=== PATIENT | male | born 1945 | race Caucasian/White ===

== ENCOUNTER → 2018-06-24 | Outpatient (CLI) | payer BC, MEDICARE ==
[~2018-06-24] MED LIST: ASPI81CH; ATEN25; ERGO400 PO; HYDACE5 PO; LORA.5 PO; METF500 PO; ROSU5 PO
== END | disposition home or self-care (01) ==
LOC: LAB SHORT 14:25 → LAB EV 14:25
DX: N39.0 Urinary tract infection, site not specified (principal)
CPT/HCPCS: 87086

== ENCOUNTER 2018-10-14 08:50 | Emergency (ER) | payer BC, MEDICARE ==
[~2018-10-14] VITALS: Ht 172.7 cm; Wt 88.5 kg
[2018-10-14 09:31] LABS: BASOPHILS ABSOLUTE AUTO 0.05 K/mm3 (0.00-0.23); BASOPHILS PERCENT AUTO 1 % (0-2); EOSINOPHILS ABSOLUTE AUTO 0.11 K/mm3 (0.00-0.68); EOSINOPHILS PERCENT AUTO 1 % (0-6); Hematocrit 46.1 % (37.0-53.0); Hemoglobin 15.5 g/dL (13.5-17.5); IMMATURE GRAN ABSOLUTE AUTO 0.03 K/mm3 (0.00-0.10); IMMATURE GRAN PERCENT AUTO 0 % (0-1); LYMPHOCYTES ABSOLUTE AUTO 2.25 K/mm3 (0.84-5.20); LYMPHOCYTES PERCENT AUTO 27 % (21-46); MONOCYTES ABSOLUTE AUTO 0.54 K/mm3 (0.16-1.47); MONOCYTES PERCENT AUTO 6 % (4-13); Mean Corpuscular HGB 31.2 pg (26.0-34.0); Mean Corpuscular HGB Conc 33.6 g/dL (31.5-36.5); Mean Corpuscular Volume 93 fL (80-100); NEUTROPHILS PERCENT AUTO 65 % (41-73); Platelet Count 232 K/mm3 (150-400); RDW Coefficient Variation 13.1 % (11.7-14.2); RDW Standard Deviation 44.3 fL (35.1-46.3); Red Blood Cell Count 4.97 M/mm3 (4.30-5.90); White Blood Cell Count 8.38 K/mm3 (4.00-11.30)
[2018-10-14 10:19] LABS: Alanine Aminotransfer (ALT/SGP 35 U/L (12-78); Albumin, Blood 3.9 g/dL (3.4-5.0); Albumin/Globulin Ratio 1.1 (0.8-1.8); Alk Phos 54 U/L (50-136); Anion Gap 8 mmol/L (6-16); Aspartate Aminotrans (AST/SGOT 23 U/L (12-37); Bilirubin, Total 1.2 mg/dL (0.1-1.0); Blood Urea Nitrogen 20 mg/dL (8-24); Bun/Creatinine Ratio 17.1 (12.0-20.0); CO2, Blood 25 mmol/L (21-32); Chloride, Blood 106 mmol/L (98-108); Creatinine, Blood 1.17 mg/dL (0.60-1.20); Globulin, Blood 3.4 g/dL (2.2-4.0); Glomerular Filtration Rate >60 (60-); Glucose, Blood 119 mg/dL (70-99); Potassium, Blood 3.8 mmol/L (3.5-5.5); Sodium, Blood 139 mmol/L (136-145); Total Protein, Blood 7.3 g/dL (6.4-8.2); Troponin I <0.015 ng/mL (0.000-0.040)
[2018-10-14] MEDS ORDERED: TEMA7.5 PO (11:17)
== END 2018-10-14 11:30 | disposition home or self-care (01) ==
LOC: ER 08:50
PROVIDERS: Emergency Medicine
DX: R42 Dizziness and giddiness (principal); H53.8 Other visual disturbances; G47.00 Insomnia, unspecified; Z88.5 Allergy status to narcotic agent; Z79.899 Other long term (current) drug therapy; Z79.84 Long term (current) use of oral hypoglycemic drugs; Z79.82 Long term (current) use of aspirin; E11.9 Type 2 diabetes mellitus without complications; J45.909 Unspecified asthma, uncomplicated
CPT/HCPCS: 36415; 71046; 80053; 84484; 85025; 93005; 93010; 99285-25

== ENCOUNTER 2020-09-07 03:24 | Observation (INO) | payer OTHER, BC, MEDICARE ==
[~2020-09-07] VITALS: Ht 175.3 cm; Wt 79.8 kg
[~2020-09-07 03:24] MED LIST changes: -ASPI81CH; +ASPI81CH PO; -ATEN25; +ATEN25 PO; +TEMA7.5 PO
[2020-09-07] MEDS ORDERED: PRED20 PO (03:35)
[2020-09-07] MEDS ORDERED: ELIQUIS5 MG PO (03:36)
[2020-09-07] MEDS ORDERED: ALBU8HFA2 INH (03:36)
[2020-09-07 03:45] LABS: BASOPHILS ABSOLUTE AUTO 0.02 K/mm3 (0.00-0.23); BASOPHILS PERCENT AUTO 0 % (0-2); EOSINOPHILS PERCENT AUTO 0 % (0-6); Hematocrit 39.5 % (37.0-53.0); Hemoglobin 13.8 g/dL (13.5-17.5); IMMATURE GRAN ABSOLUTE AUTO 0.13 K/mm3 (0.00-0.10); IMMATURE GRAN PERCENT AUTO 1 % (0-1); LYMPHOCYTES ABSOLUTE AUTO 2.88 K/mm3 (0.84-5.20); LYMPHOCYTES PERCENT AUTO 19 % (21-46); MONOCYTES ABSOLUTE AUTO 1.16 K/mm3 (0.16-1.47); MONOCYTES PERCENT AUTO 8 % (4-13); Mean Corpuscular HGB 30.8 pg (26.0-34.0); Mean Corpuscular HGB Conc 34.9 g/dL (31.5-36.5); Mean Corpuscular Volume 88 fL (80-100); Mean Platelet Volume 9.4 fL (9.1-12.4); NEUTROPHILS ABSOLUTE AUTO 10.68 K/mm3 (1.96-9.15); NEUTROPHILS PERCENT AUTO 72 % (41-73); Platelet Count 502 K/mm3 (150-400); RDW Standard Deviation 41.6 fL (35.1-46.3); Red Blood Cell Count 4.48 M/mm3 (4.30-5.90); White Blood Cell Count 14.87 K/mm3 (4.00-11.30)
[2020-09-07 04:01] LABS: Alanine Aminotransfer (ALT/SGP 136 U/L (12-78); Albumin, Blood 3.2 g/dL (3.4-5.0); Albumin/Globulin Ratio 0.9 (0.8-1.8); Alk Phos 139 U/L (50-136); Anion Gap 11 mmol/L (6-16); Aspartate Aminotrans (AST/SGOT 73 U/L (12-37); Bilirubin, Total 1.3 mg/dL (0.1-1.0); Blood Urea Nitrogen 27 mg/dL (8-24); Bun/Creatinine Ratio 27.9 (12.0-20.0); CO2, Blood 22 mmol/L (21-32); Calcium, Blood 9.1 mg/dL (8.5-10.1); Chloride, Blood 108 mmol/L (98-108); Creatinine, Blood 0.97 mg/dL (0.60-1.20); Globulin, Blood 3.5 g/dL (2.2-4.0); Glomerular Filtration Rate >60 (60-); Glucose, Blood 111 mg/dL (70-99); Potassium, Blood 4.3 mmol/L (3.5-5.5); Sodium, Blood 141 mmol/L (136-145); Total Protein, Blood 6.7 g/dL (6.4-8.2)
[2020-09-07 04:38] LABS: Magnesium, Blood 2.1 mg/dL (1.6-2.4)
[2020-09-07 05:48] LABS: Source, Urine Clean Catch
[2020-09-07 05:54] LABS: Bilirubin, Urine Neg (Neg); Blood, Urine Neg (Neg); Glucose Qualitative, Urine Neg (Neg); Ketones, Urine Neg (Neg); Leukocyte Esterase, Urine Neg (Neg); Nitrite, Urine Neg (Neg); Protein, Urine Neg (Neg); Urobilinogen, Urine NORM (Normal)
[2020-09-07 06:03] LABS: Appearance, Urine Clear (Clear); Color, Urine Yellow (P-Yellow)
[2020-09-07 06:05] LABS: Influenza A, PCR NEGATIVE (NEGATIVE); Influenza B, PCR NEGATIVE (NEGATIVE); Resp Syncytial Virus, PCR NEGATIVE (NEGATIVE)
[2020-09-07 06:08] LABS: SARS-Cov-2 (COVID-19) PCR, MMC POSITIVE (NEGATIVE)
--- NOTE | 2020-09-07 19:50 | NUR ---
SHIFT SUMMARY PT IS A&OX2. TRANSFERED FROM ER AT 1558 VIA BED. PT DIET ADVANCED TO REGUALR ADA AND CBG ORDER OBTAINED FROM . PT IS CONTINENT/INCONTINENT CAN USE URINAL. PT DINNER TRAY DID NOT COME UP WITH REGULAR TRAYS AND REORDERED NEW ONE THAT ARRIVED AT SHIFT CHANGED. PT CURENTLY IN ROOM WATCHING TV. UPDATED ON PHONE. PT IS BEDBOUND AT THIS TIME. FROM ER REPORT PT IS A&OX4 AT BASELINE. PT CURENTLY CONFUSED AND NEEDS TO BE REORIENTED WHILE IN ROOM.
--- NOTE | 2020-09-08 04:34 | NUR ---
SHIFT SUMMARY ALERT, HOWEVER, UNABLE TO FULLY FORM THOUGHTS. SOMEWHAT CONFUSED THIS MORNING TO CIRCUMSTANCE AND PLACE. RE-ORIENTED TO PLACE AND SITUATION. EXPLAINED THAT DOES KNOW HE IS IN THE HOSPITAL AND THIS RN SPOKE TO HER EXTENSIVELY. APPEARED TO REST OVERNIGHT. TELE RUNNING SR IN 70s. VSS/AFEBRILE. REMAINS ON RA, LUNGS CTA, AND RESPIRATIONS EVEN WITH EQUAL RISE/FALL. NO ACUTE CHANGES NOTED OVERNIGHT. BED REMAINS IN LOWEST POSITION. CALL LIGHT AND BELONGINGS WITHIN REACH. 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 CONTINUE WITH CURRENT PLAN OF CARE. REPORT TO ONCOMING RN.
[2020-09-08 04:44] LABS: BASOPHILS ABSOLUTE AUTO 0.03 K/mm3 (0.00-0.23); BASOPHILS PERCENT AUTO 0 % (0-2); EOSINOPHILS PERCENT AUTO 1 % (0-6); Hematocrit 39.1 % (37.0-53.0); Hemoglobin 13.6 g/dL (13.5-17.5); IMMATURE GRAN ABSOLUTE AUTO 0.08 K/mm3 (0.00-0.10); IMMATURE GRAN PERCENT AUTO 1 % (0-1); LYMPHOCYTES ABSOLUTE AUTO 2.87 K/mm3 (0.84-5.20); LYMPHOCYTES PERCENT AUTO 32 % (21-46); MONOCYTES ABSOLUTE AUTO 0.98 K/mm3 (0.16-1.47); MONOCYTES PERCENT AUTO 11 % (4-13); Mean Corpuscular HGB 30.9 pg (26.0-34.0); Mean Corpuscular HGB Conc 34.8 g/dL (31.5-36.5); Mean Corpuscular Volume 89 fL (80-100); Mean Platelet Volume 9.3 fL (9.1-12.4); NEUTROPHILS ABSOLUTE AUTO 4.96 K/mm3 (1.96-9.15); NEUTROPHILS PERCENT AUTO 55 % (41-73); Platelet Count 435 K/mm3 (150-400); RDW Standard Deviation 42.6 fL (35.1-46.3); White Blood Cell Count 9.02 K/mm3 (4.00-11.30)
[2020-09-08 05:11] LABS: Alanine Aminotransfer (ALT/SGP 109 U/L (12-78); Albumin, Blood 2.9 g/dL (3.4-5.0); Albumin/Globulin Ratio 0.9 (0.8-1.8); Alk Phos 116 U/L (50-136); Anion Gap 8 mmol/L (6-16); Aspartate Aminotrans (AST/SGOT 59 U/L (12-37); Bilirubin, Total 1.4 mg/dL (0.1-1.0); Blood Urea Nitrogen 27 mg/dL (8-24); Bun/Creatinine Ratio 25.2 (12.0-20.0); CO2, Blood 24 mmol/L (21-32); Calcium, Blood 8.5 mg/dL (8.5-10.1); Chloride, Blood 110 mmol/L (98-108); Creatinine, Blood 1.07 mg/dL (0.60-1.20); Globulin, Blood 3.3 g/dL (2.2-4.0); Glomerular Filtration Rate >60 (60-); Glucose, Blood 91 mg/dL (70-99); Sodium, Blood 142 mmol/L (136-145); Total Protein, Blood 6.2 g/dL (6.4-8.2)
[2020-09-08] MEDS ORDERED: AZIT250 PO (11:48)
--- NOTE | 2020-09-08 15:30 | NUR ---
DISCHARGE SUMMARY PT AxOx4. PLEASANT AND COOPERATIVE WITH CARE. NO PAIN REPORTED. MODERATE BUE TREMOR NOTED. PT DISCHARGING TODAY HOME WITH . DISCHARGE INSTRUCTIONS DISCUSSED WITH PATIENT AND , CLAUDY, INCLUDING DC MEDICATIONS, AND FOLLOW UP INSTRUCTIONS FOR PCP AND HOME HEALTH. PER RELAY TESTER HELPER, PT WILL HAVE FWW DELIEVERED TO HOME. PT REQUESTED TO DC BEFORE FWW COULD BE DELIEVERED TO HOSPITAL. PATIENT AND VERBALIZE UNDERSTANDING. DENY ANY FURTHER NEEDS AT THIS TIME. VITALS REVIEWED. PATIENT SAFELY ESCORTED OUT IN WC WITH AND MANAGER PSYCHIATRY.
== END 2020-09-08 15:35 | disposition home health service (06) ==
LOC: ER 03:24 → ERHOLD 03:25 → MEDS 03:25 → ERHOLD 03:25 → MEDS 15:51
PROVIDERS: Emergency Medicine; Family Medicine; ADMIT Internal Medicine
DX: G92 Toxic encephalopathy (principal); U07.1 COVID-19; J12.82 Pneumonia due to coronavirus disease 2019; R65.10 Systemic inflammatory response syndrome (SIRS) of non-infectious origin without acute organ dysfunction; E11.9 Type 2 diabetes mellitus without complications; J45.909 Unspecified asthma, uncomplicated; I25.10 Atherosclerotic heart disease of native coronary artery without angina pectoris; N40.0 Benign prostatic hyperplasia without lower urinary tract symptoms; I10 Essential (primary) hypertension; E78.00 Pure hypercholesterolemia, unspecified; Z87.891 Personal history of nicotine dependence; Z79.01 Long term (current) use of anticoagulants; Z79.84 Long term (current) use of oral hypoglycemic drugs; Z79.82 Long term (current) use of aspirin
CPT/HCPCS: 0241U; 36415; 70450; 80053; 81003; 82140; 82947; 83735; 83880; 84443; 85025; 93005; 93010; 96361; 96365; 96375; 96376; 97116; 97162; 97165; 97530; 97535; 99285-25; A9270; G0378; J0360; J0696; J7120

== ENCOUNTER 2024-03-18 17:43 | Emergency (ER) | payer OTHER, MEDICARE ==
[~2024-03-18] VITALS: Ht 175.3 cm; Wt 78.9 kg
[~2024-03-18 17:43] MED LIST changes: +ALBU8HFA2 INH; +ATOR40TA PO; +AZIT250 PO; +CEPH500 PO; +CLOP75 PO; +ELIQUIS5 MG PO; +LISI5 PO; +PRED20 PO
[2024-03-18] MEDS ORDERED: Metoclopramide HCl 5MG / ML 2ML Vial IV ONE (18:05)
[2024-03-18] MEDS ORDERED: Lactated Ringer's 1,000 ML IV ONE (18:05)
[2024-03-18 18:26] LABS: Hematocrit 42.1 % (37.0-53.0); Hemoglobin 14.9 g/dL (13.5-17.5); Mean Corpuscular HGB 31.9 pg (26.0-34.0); Mean Corpuscular HGB Conc 35.4 g/dL (31.5-36.5); Mean Corpuscular Volume 90 fL (80-100); Mean Platelet Volume 10.1 fL (9.1-12.4); Platelet Count 221 K/mm3 (150-400); RDW Coefficient Variation 13.2 % (11.7-14.2); RDW Standard Deviation 43.8 fL (35.1-46.3); Red Blood Cell Count 4.67 M/mm3 (4.30-5.90); White Blood Cell Count 25.11 K/mm3 (4.00-11.30)
[2024-03-18 18:41] LABS: Albumin, Blood 3.6 g/dL (3.4-5.0); Albumin/Globulin Ratio 1.1 (0.8-1.8); Bilirubin, Total 1.4 mg/dL (0.1-1.0); Bun/Creatinine Ratio 17.2 (12.0-20.0); Calcium, Blood 9.1 mg/dL (8.5-10.1); Creatinine, Blood 1.34 mg/dL (0.60-1.20); Globulin, Blood 3.2 g/dL (2.2-4.0); Magnesium, Blood 1.5 mg/dL (1.6-2.4); Potassium, Blood 3.6 mmol/L (3.5-5.5); Total Protein, Blood 6.8 g/dL (6.4-8.2)
[2024-03-18 18:54] LABS: BASOPHILS PERCENT MAN 0 % (0-2); EOSINOPHILS PERCENT MAN 0 % (0-6); LYMPHOCYTES PERCENT MAN 2 % (21-46); MONOCYTES ABSOLUTE MAN 0.75 K/mm3 (0.16-1.47); MONOCYTES PERCENT MAN 3 % (4-13); NEUTROPHILS ABSOLUTE MAN 23.85 K/mm3 (1.96-9.15); SEG NEUTROPHILS PERCENT MAN 95 % (41-73); TOTAL CELLS COUNTED 100
[2024-03-18 19:01] LABS: Influenza A, PCR NEGATIVE (NEGATIVE); Influenza B, PCR NEGATIVE (NEGATIVE); Resp Syncytial Virus, PCR NEGATIVE (NEGATIVE); SARS-Cov-2 (COVID-19) PCR, MMC NEGATIVE (NEGATIVE)
[2024-03-18 22:03] LABS: Source, Urine Clean Catch
[2024-03-18 22:06] LABS: Appearance, Urine Clear (Clear); Bilirubin, Urine Neg (Neg); Blood, Urine 4+ (Neg); Color, Urine Yellow (P-Yellow); Glucose Qualitative, Urine Neg (Neg); Ketones, Urine Neg (Neg); Leukocyte Esterase, Urine 2+ (Neg); Nitrite, Urine Neg (Neg); Protein, Urine 1+ (Neg); Specific Gravity, Urine 1.005 (1.003-1.022); Urobilinogen, Urine NORM (Normal); pH, Urine 6.5 (5.0-8.0)
[2024-03-18 22:15] LABS: Bacteria Mod /hpf; Squamous Epithelial Cells Few /hpf (Few)
[2024-03-18] MEDS ORDERED: CefTRIAXone Sodium 1,000 MG in NS 100 ML IV ONE (22:20)
[2024-03-19 01:27] VITALS: BP 101/67
[2024-03-19] MEDS ORDERED: SULTRIDS PO (01:31)
[2024-03-19] MEDS ORDERED: ONDA4ODT MM (01:31)
[2024-03-19] MEDS ORDERED: RX Prepack 2 Tabs Ondansetron ODT 4MG UD ONE (01:35)
== END 2024-03-19 02:07 | disposition home or self-care (01) ==
LOC: ER 17:43
PROVIDERS: Student in an Organized Health Care Education/Training Program
DX: N13.6 Pyonephrosis (principal); E11.9 Type 2 diabetes mellitus without complications; J45.909 Unspecified asthma, uncomplicated; I25.10 Atherosclerotic heart disease of native coronary artery without angina pectoris; E78.00 Pure hypercholesterolemia, unspecified; Z88.5 Allergy status to narcotic agent; Z88.8 Allergy status to other drugs, medicaments and biological substances; Z79.82 Long term (current) use of aspirin
CPT/HCPCS: 0241U; 71045; 74177; 80053; 81001; 83690; 83735; 84484; 85025; 87077; 87086; 87186; 96361; 96365-59; 96375; 99285-25; J0696; J2765; J7120; Q9967

== ENCOUNTER → 2024-08-06 | Outpatient (CLI) | payer OTHER, MEDICARE ==
[~2024-08-06] MED LIST changes: +ONDA4ODT MM; +SULTRIDS PO
== END | disposition home or self-care (01) ==
LOC: LAB SHORT 16:12
DX: R33.9 Retention of urine, unspecified (principal)
CPT/HCPCS: 87077; 87086; 87186